=== PATIENT | male | born 1945 | race Caucasian/White ===

== ENCOUNTER 2017-08-19 16:51 | Inpatient (IN) | payer MEDICARE, OTHER ==
[~2017-08-19] VITALS: Ht 172.7 cm; Wt 77.7 kg
[2017-08-19 18:18] VITALS: BP 134/77
[2017-08-19 20:29] VITALS: BP 116/74
[2017-08-19] MEDS ORDERED: ONDANSETRON HCL 4 MG/2 ML VIAL IVP PRN (21:00)
[2017-08-19] MEDS ORDERED: ZOLPIDEM TARTRATE 5 MG TABLET PO PRN (21:00)
[2017-08-19] MEDS ORDERED: ACETAMINOPHEN 325 MG TABLET PO PRN ×2 (21:00)
[2017-08-19] MEDS ORDERED: ALBUTEROL SULFATE 2.5 MG/0.5 ML NEB SOLUTION NEB PRN (21:00)
[2017-08-19] MEDS: DOCUSATE SODIUM 100 MG CAPSULE PO SCH (21:00)
[2017-08-19] MEDS ORDERED: IPRATROPIUM BROMIDE 0.5 MG/2.5 ML NEB SOLUTION NEB PRN (21:00)
[2017-08-19] MEDS ORDERED: BISACODYL 10 MG RECTAL RECTAL SUPPOSITORY PR PRN (21:00)
[2017-08-19] MEDS: MethylPREDNISolone SOD SUCC 40 MG/ML VIAL IVP SCH (23:40)
[2017-08-20] VITALS (7 sets, daily range): BP systolic 114–134; BP diastolic 56–78
[2017-08-20] MEDS: MethylPREDNISolone SOD SUCC 40 MG/ML VIAL IVP SCH ×4 (05:44→23:39)
[2017-08-20 06:00] LABS: BASOPHILS % (AUTO) 0.2 % (0.0-2.0); EOSINOPHILS % (AUTO) 0.1 % (1.0-6.0); HEMATOCRIT 51.6 % (41-53); HEMOGLOBIN 17.5 g/dL (13.5-17.5); LYMPHOCYTES # (AUTO) 0.4 K/uL (1.0-4.8); LYMPHOCYTES % (AUTO) 7.3 % (22.0-44.0); MEAN CORPUSCULAR HEMOGLOBIN 33.3 pg (26.0-34.0); MEAN CORPUSCULAR HGB CONC 33.8 G/dL (31.0-37.0); MEAN CORPUSCULAR VOLUME 99 fL (80-100); MONOCYTES % (AUTO) 0.9 % (2.0-9.0); NEUTROPHILS # (AUTO) 4.7 K/uL (1.8-7.7); PLATELET COUNT (AUTO) 201 K/uL (150-450); RED BLOOD CELL COUNT(AUTO) 5.24 MIL/uL (4.50-5.90); RED CELL DISTRIBUTION WIDTH 15.3 % (11.5-14.5); WHITE BLOOD COUNT (AUTO) 5.1 K/uL (4.5-11.0)
[2017-08-20 06:20] LABS: ALANINE AMINOTRANSFERASE 15 U/L (12-78); ALBUMIN 3.5 g/dL (3.4-5.0); ANION GAP 7 mmol/L (8-16); ASPARTATE AMINOTRANSFERASE 17 U/L (15-37); BILIRUBIN,TOTAL 0.3 mg/dL (0.1-1.0); CALCIUM, TOTAL 8.9 mg/dL (8.8-10.5); CARBON DIOXIDE 29 mmol/L (22-29); CHLORIDE 102 mmol/L (98-107); CREATININE 0.94 mg/dL (0.60-1.30); GLOMERULAR FILTR. RATE CALC > 60 mL/min (>60); POTASSIUM 4.6 mmol/L (3.5-5.1); SODIUM SERUM 138 mmol/L (136-145); TOTAL PROTEIN, SERUM 6.8 g/dL (6.4-8.2); UREA NITROGEN, BLOOD 10 mg/dL (7-18)
[2017-08-20 07:00] LABS: NEUTROPHILS % (AUTO) 91.5 % (40.0-70.0)
[2017-08-20] MEDS: IPRATROPIUM BROMIDE 0.5 MG/2.5 ML NEB SOLUTION NEB SCH ×3 (08:01→20:33)
[2017-08-20] MEDS: ALBUTEROL SULFATE 2.5 MG/0.5 ML NEB SOLUTION NEB SCH ×3 (08:01→20:33)
[2017-08-20] MEDS: DOCUSATE SODIUM 100 MG CAPSULE PO SCH ×3 (08:20→20:02)
[2017-08-20] MEDS: PANTOPRAZOLE SODIUM 40 MG DR TABLET PO SCH (08:21)
[2017-08-20 09:08] LABS: RBC MORPHOLOGY COMMENT NORMAL RBC MORPH
[2017-08-20] MEDS ORDERED: DEXTROSE 50%-WATER 25 GM/50 ML SYRINGE IVP PRN (18:15)
[2017-08-20] MEDS: INSULIN ASPART 100 UNITS/ML SQ PRN ×2 (18:29→22:08)
[2017-08-21 04:29] VITALS: BP 133/70
[2017-08-21] MEDS: MethylPREDNISolone SOD SUCC 40 MG/ML VIAL IVP SCH ×4 (05:20→23:13)
[2017-08-21] MEDS: INSULIN ASPART 100 UNITS/ML SQ PRN ×4 (05:25→20:49)
[2017-08-21 05:27] LABS: GLUCOSE COMMENT 1 Received Meds; GLUCOSE,POINT OF CARE 246 MG/DL (70-110)
[2017-08-21 06:48] LABS: GLUCOSE,POINT OF CARE 223 MG/DL (70-110)
[2017-08-21 06:49] LABS: GLUCOSE,POINT OF CARE 235 MG/DL (70-110)
[2017-08-21 06:49] LABS: GLUCOSE,POINT OF CARE 192 MG/DL (70-110)
[2017-08-21] MEDS: IPRATROPIUM BROMIDE 0.5 MG/2.5 ML NEB SOLUTION NEB SCH ×3 (07:22→22:37)
[2017-08-21] MEDS: ALBUTEROL SULFATE 2.5 MG/0.5 ML NEB SOLUTION NEB SCH ×3 (07:22→22:37)
[2017-08-21 07:33] VITALS: BP 111/51
[2017-08-21] MEDS: PANTOPRAZOLE SODIUM 40 MG DR TABLET PO SCH (08:14)
[2017-08-21] MEDS: DOCUSATE SODIUM 100 MG CAPSULE PO SCH ×3 (08:14→20:51)
[2017-08-21 11:17] VITALS: BP 122/68
[2017-08-21 15:50] VITALS: BP 129/75
[2017-08-21 17:13] LABS: GLUCOSE,POINT OF CARE 241 MG/DL (70-110)
[2017-08-21 20:06] VITALS: BP 132/70
[2017-08-22 00:05] VITALS: BP 123/88
[2017-08-22 05:00] VITALS: BP 135/89
[2017-08-22] MEDS: INSULIN ASPART 100 UNITS/ML SQ PRN ×2 (05:55→11:02)
[2017-08-22 07:35] VITALS: BP 147/72
[2017-08-22] MEDS: IPRATROPIUM BROMIDE 0.5 MG/2.5 ML NEB SOLUTION NEB SCH ×2 (07:53→15:36)
[2017-08-22] MEDS: ALBUTEROL SULFATE 2.5 MG/0.5 ML NEB SOLUTION NEB SCH ×2 (07:53→15:36)
[2017-08-22] MEDS ORDERED: MetFORMIN HCL 500 MG TABLET PO SCH (08:00)
[2017-08-22] MEDS: PANTOPRAZOLE SODIUM 40 MG DR TABLET PO SCH (08:14)
[2017-08-22] MEDS: MethylPREDNISolone SOD SUCC 40 MG/ML VIAL IVP SCH ×2 (08:14→15:48)
[2017-08-22] MEDS: DOCUSATE SODIUM 100 MG CAPSULE PO SCH (08:15)
[2017-08-22 11:11] LABS: GLUCOSE,POINT OF CARE 221 MG/DL (70-110)
[2017-08-22 11:48] VITALS: BP 132/73
[2017-08-22 15:52] VITALS: BP 124/85
[2017-08-23 11:18] LABS: GLUCOSE,POINT OF CARE 146 MG/DL (70-110)
[2017-08-23 11:18] LABS: GLUCOSE,POINT OF CARE 266 MG/DL (70-110)
[2017-08-23 11:18] LABS: GLUCOSE,POINT OF CARE 205 MG/DL (70-110)
== END 2017-08-22 16:00 | disposition home or self-care (01) | DRG 192 ==
LOC: 6N 18:05 → EDSEX 18:05
PROVIDERS: ADMIT Internal Medicine; ATTEND Internal Medicine
DX: J44.1 Chronic obstructive pulmonary disease with (acute) exacerbation (principal); F17.200 Nicotine dependence, unspecified, uncomplicated; J30.9 Allergic rhinitis, unspecified; H40.9 Unspecified glaucoma; Z91.19 Patient's noncompliance with other medical treatment and regimen
CPT/HCPCS: 71020; 82962; 83036; 87081; 94640; J2920